=== PATIENT | male | born 1945 | race Caucasian/White ===

== ENCOUNTER 2023-12-27 09:45 | Observation (INO) ==
[2023-12-27 10:45] LABS: Platelet Count 211 10^3/uL (150-450)
[2023-12-27 10:55] LABS: Activated Partial Thrombo Time 30.6 seconds (26.0-38.0); INR 1.01 (0.83-1.13)
[2023-12-27] MEDS ORDERED: Ondansetron 4 mg VIAL 2 MG/ML 2 ml VIAL IV PRN (17:20)
[2023-12-27] MEDS ORDERED: Polyethylene Glycol 3350 17 GM PACKET PO PRN (17:20)
[2023-12-27] MEDS ORDERED: Senna TAB 8.6 mg TAB PO PRN (17:20)
[2023-12-27] MEDS ORDERED: Enoxaparin 40 MG/0.4 ML SYR SUBCUT SCH (18:00)
[2023-12-27] MEDS ORDERED: CMCS: Nebivolol 2.5 mg TAB (NF) PO SCH (21:00)
[2023-12-27] MEDS ORDERED: DILTIAZEM HCL 300 MG PO SCH (21:00)
[2023-12-27] MEDS: Enoxaparin 40 MG/0.4 ML SYR SUBCUT SCH (21:05)
[2023-12-27] MEDS: fentaNYL 100 mcg/2 ml 50 MCG/ML VIAL ONE (21:08)
[2023-12-28] MEDS: CMCS: Epleronone 25 mg TAB (NF) PO SCH (07:44)
[2023-12-28] MEDS: CMCS: Nebivolol 2.5 mg TAB (NF) PO SCH (07:46)
[2023-12-28 09:33] VITALS: BP 150/72
== END 2023-12-28 13:26 | disposition home or self-care (01) ==
LOC: SSU 09:45 → SP 09:45 → SUATTDRO 19:23
PROVIDERS: ADMIT Student in an Organized Health Care Education/Training Program; ATTEND Internal Medicine